=== PATIENT | female | born 1945 ===

== ENCOUNTER 2024-06-27 14:34 | Outpatient (AMB) | payer MEDICARE, SELFPAY ==
--- NOTE | 2024-06-27 14:49 | HO.NEPHOV ---
Vital Signs 06/27/24 14:52 Height 5 ft 2 in Weight 167 lb BMI 30.5 BP 132/66 Blood Pressure Location Lt brachial Position Sitting Pulse 54 Pulse Source Pulse Oximeter Pulse Oximetry (%) 97 Oxygen Delivery Method Room Air Intake Visit Reasons: ENP: Elevated BP-Conf Apple Checker Required: No Accompanied by: Spouse Allergies dicyclomine Allergy (Verified 06/27/24 14:54) Unknown Penicillins Allergy (Verified 06/27/24 14:54) Unknown Bentyl Allergy (Severe, Uncoded 06/27/24 14:54) Anaphylaxis Do you need a note to return to daycare/school/sports/work: No HPI Comments Details: I had the pleasure of seeing Deborah, accompanied by her , in consultation for labile blood pressure. She has H/O atrial arrhythmia and had undergone ablation. She has been having labile blood pressure more so at night. She takes sotalol for her arrhythmias which is also helping with her blood pressure. She has hypothyroidism and is on levothyroxine. She is not known to have renal dysfunction. She denies hypokalemia or vascular symptoms. She does not have any chest pain, shortness of breath, edema, hematuria or dizziness. She has a normal sodium diet [facility] Medical History Tinnitus of both ears Sensorineural hearing loss (SNHL) of both ears Lower leg edema Palpitations Chest pain PAF (paroxysmal atrial fibrillation) Elevated blood pressure reading Atrial tachycardia Family History Mother Hypertension Mitral valve prolapse Lung cancer Review of Systems Const All systems reviewed & are unremarkable except as noted in HPI and below Physical Exam Vital Signs: Last Vital Signs Pulse 54 06/27/24 14:52 BP 132/66 06/27/24 14:52 Pulse Ox 97 06/27/24 14:52 Oxygen Delivery Method Room Air 06/27/24 14:52 BMI result Body Mass Index 30.5 Const General: comfortable and no acute distress Orientation/consciousness: patient oriented x3 HEENT Head: Yes normocephalic Mouth: Normal oral and palatal mucosa present Eyes EOM: EOMs intact bilaterally Neck Neck: Yes supple Resp Auscultation: clear to auscultation bilaterally Cardio Jugular venous distension: no JVD Rate: regular rate GI Palpation (GI): Soft to palpation Auscultation: normal bowel sounds General: Yes no CVA tenderness Back/Spine/Pelvis Back: no CVA tenderness Skin General skin exam: no rashes or lesions noted Neuro General: patient oriented x3 and moves all extremities Extrem General: Yes no pedal edema Results Reviewed Nephrology Results: No Data to Display Assessment & Plan Assessment & Plan (1) Labile blood pressure: Code(s): R09.89 - Other specified symptoms and signs involving the circulatory and respiratory systems Category: Medical Plan Low sodium diet and continued life style modifications 24 hour Ambulatory blood pressure monitor ordered C/W current dose of sotalolol for now May need renin/aldosterone & doppler of renal arteries Further management is pending evolving data Answered all questions; F/U given in a few weeks Orders: Orders AMB 24 HR B/P Monitor PLACEMENT Today R09.89 - Other specified symptoms and signs involving the circulatory and respiratory systems Coding Level of Care Code New Pt Level 4 (04096) Diagnoses Labile blood pressure R09.89
[2024-06-27 14:52] VITALS: BP 132/66; PULSE 54; O2SAT 97; BMI 30.5
--- OUTSIDE RECORDS SUMMARY | 2024-06-27 17:20 | XMS_ITS | Clinical Summary ---
Author Organization [facility] Address [address] [place] [address] Care Team Providers Care Field Care Advocate Name Role Phone Rufino Monroe MD Primary Care Provider [phone] Allergies Active Allergy Reactions Criticality Noted Date Comments Dicyclomine Anaphylaxis High 11/06/2020 Penicillins Vomiting 11/06/2020 Sulfa (Sulfonamide Antibiotics) Vomiting 10/11 Medications No known medications Active Problems No known active problems Social History Tobacco Use Types Packs/Day Years Used Date Smoking Tobacco: Never Assessed Comments Unknown Sex and Gender Information Value Date Recorded Sex Assigned at Not on file Legal Sex Female 10:11 AM EDT Gender Identity Not on file Sexual Orientation Not on file Last Filed Vital Signs Vital Sign Reading Time Taken Comments Blood Pressure 121/57 11/06/2020 2:00 PM EDT Pulse 70 11/06/2020 2:00 PM EDT Temperature 36.3 ??C (97.4 ??F) 11/06/2020 2:00 PM ED T Respiratory Rate 18 11/06/2020 2:00 PM EDT Oxygen Saturation 100% 11/06/2020 2:00 PM EDT Inhaled Oxygen Concentration - - Weight 75.3 kg (166 lb 0.1 oz) 11/06/2020 10:28 AM EDT Height 157.5 cm (5' 2 ) 11/06/2020 10:28 AM EDT Body Mass Index 30.36 11/06/2020 10:28 AM EDT Plan of Treatment Health Maintenance Due Date Last Done Comments Mammogram 1945 Medicare Annual Wellness Visit 08/08/1963 Tdap and Td Vaccines Adult 1964 Pneumococcal Vaccine: 50+ Ye ars (1 of 1 - PCV) 08/08/1995 Zoster Vaccines (1 of 2) 08/08/1995 Fall Risk Screening 2010 RSV 60+ (1 - 1-dose 75+ series) 2020 COVID-19 Vaccine ( - 2023-2 5 season) 2023 Influenza Vaccine (#1) 2023 HIB Vaccines Aged Out No longer eligi ble based on patient's age to complete this topic HPV Vaccines Aged Out No longer eligi ble based on patient's age to complete this topic Hepatitis A Vaccines Aged Out No long er eligible based on patient's age to complete this topic IPV Vaccines Aged Out No longer eligi ble based on patient's age to complete this topic Meningococcal Vaccine Aged Out No taran eden eligible based on patient's age to complete this topic RSV <20 Months Aged Out No longer suzie gible based on patient's age to complete this topic Insurance [facility] Care Teams Field Care Advocate Relationship Specialty Start Date End Date Rufino Monroe MD [address] [facility] [address] [address] PCP - General Internal Medicine 11/06/20
--- OUTSIDE RECORDS SUMMARY | 2024-06-27 17:20 | XMS_ITS | Clinical Summary ---
Author Organization [facility] Address [address] [place] [address] Care Team Providers Care Commercial Property Administrator Name Role Phone Rufino Monroe MD Primary Care Provider [phone] Allergies Active Allergy Reactions Criticality Noted Date Comments Dicyclomine Anaphylaxis High 11/06/2020 Other reaction(s): Other (See Comments) Stop breathing Menthol Anaphylaxis High 07/15/2022 Penicillins Nausea And Vomiting Low 11/06/2020 Other reaction(s): Vomiting Sulfa Antibiotics Nausea And Vomiting Medications Medication Sig Dispensed Refills Start Date End Date Status levothyroxine (SYNTHROID, LEVOXYL) tablet 50 mcg Take 1 tablet (50 mcg total) by mouth daily. 3 01/08/2018 Active conjugated estrogens (PREMARIN) vaginal cream Premarin 0.625 mg/gram vaginal cream 0 Active sotalol (BETAPACE) 80 MG tablet Take 1 tablet (80 mg total) by mouth 2 (two) times a day. 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 Tinnitus of both ears 03/17/2018 Sensorineural hearing loss (SNHL) of both ears 1 05/18/2017 Family History Medical History Relation Name Comments Hypertension Mother Mitral valve prolapse Mother Relation Name Status Comments Mother Social History Tobacco Use Types Packs/Day Years Used Date Smoking Tobacco: Never Passive Smoke Exposure: Never Smokeless Tobacco: Never Alcohol Use Standard Drinks/Week Comments No 0 (1 standard drink = 0.6 oz pur e alcohol) Sex and Gender Information Value Date Recorded Sex Assigned at Female 10/23/2019 11:20 PM EDT Gender Identity Female 04/04/2022 9:42 PM EST Sexual Orientation Not on file Job Start Date Occupation Industry Not on file Not on file Not on file Last Filed Vital Signs Vital Sign Reading Time Taken Comments Blood Pressure 116/66 08/27/2022 2:25 PM EDT Pulse 65 08/27/2022 2:25 PM EDT Temperature 36.2 ??C (97.1 ??F) 06/29/2022 2:09 PM ED T Respiratory Rate 18 04/04/2022 9:39 PM EST Oxygen Saturation 96% 08/27/2022 2:25 PM EDT Inhaled Oxygen Concentration - - Weight 76.2 kg (168 lb) 08/27/2022 2:25 PM EDT Height 158.8 cm (5' 2.5 ) 08/27/2022 2:25 PM EDT Body Mass Index 30.24 08/27/2022 2:25 PM EDT Plan of Treatment Health Maintenance Due Date Last Done Comments Hepatitis C Screening 1945 Depression Screening 1957 BMI Counseling 08/08/1963 Preventative Health Evaluation 08/08/1963 DTap / Tdap / Td (1 - Tdap) 1964 Shingrix-Zoster Vaccine (1 of 2) 08/08/1995 Fall Risk Assessment 2010 Osteoporosis Screening (DEXA Scan) 2010 Pneumococcal Vaccine (1 of 1 - PCV) 2010 RSV Adult > 60+ Yrs or (1 - 1-dose 75+ series) 2020 COVID-19 Vaccine (3 - season) 2023 06/01/2020, 05/11/2020 Influenza Vaccine (#1) 2023 , 12/20/2019, 03/11/2019, Additional history exists Hepatitis B Vaccines Aged Out No long er eligible based on patient's age to complete this topic RSV Ped < 20 months Aged Out No longe r eligible based on patient's age to complete this topic Care Teams Commercial Property Administrator Relationship Specialty Start Date End Date Rufino Monroe MD [facility] [address] [address] PCP - General Oxyhydrogen Welder 03/17/18
--- OUTSIDE RECORDS SUMMARY | 2024-06-27 17:20 | XMS_ITS | Encounter Summary ---
Author Organization [facility] Address [address] [place] [address] Care Team Providers Care Cancer Program Director Name Role Phone Rufino Monroe MD Primary Care Provider [phone] Reason for Visit * Reason Comments Follow-up Encounter Details Date Type Department Care Team (Late st Contact Info) Description 06/14/2024 1:10 PM EST Office Visit [facility] [address] [place] [address] Carine Farmer PA [address] [place] [address] PAF (paroxysmal atrial fibrillation) (CMS/HCC) (Primary Dx); Palpitations; Atrial tachycardia (CMS/HCC); Elevated blood pressure reading Social History Tobacco Use Types Packs/Day Years Used Date Smoking Tobacco: Never Passive Smoke Exposure: Past Smokeless Tobacco: Never Alcohol Use Standard Drinks/Week Comments Not Currently 0 (1 standard drink = 0.6 oz pur e alcohol) No alcohol use Comments Unknown Sex and Gender Information Value Date Recorded Sex Assigned at Female 04/13/2024 7:29 PM EST Legal Sex Female 12:43 PM EST Gender Identity Female 04/13/2024 7:29 PM EST Sexual Orientation Straight 04/13/2024 7: 29 PM EST documented as of this encounter Last Filed Vital Signs Vital Sign Reading Time Taken Comments Blood Pressure 154/84 06/14/2024 1:09 PM EST Pulse 59 06/14/2024 1:09 PM EST Temperature - - Respiratory Rate - - Oxygen Saturation 96% 06/14/2024 1:09 PM EST Inhaled Oxygen Concentration - - Weight 75.8 kg (167 lb) 06/14/2024 1:09 PM EST Height 160 cm (5' 3 ) 06/14/2024 1:09 PM EST Body Mass Index 29.58 06/14/2024 1:09 PM EST documented in this encounter Progress Notes * ENDER Estevez - 06/14/2024 1:10 PM EST Please call with any questions or concerns Carine HANDLEY-C [phone] [facility] [address] [place] [address] Dr Zelaya wants to review and will call you and your son Stay on same medication Sent msg regarding bp monitor documented in this encounter Plan of Treatment Upcoming Encounters Date Type Department Care Team (Late st Contact Info) Description 10/04/2024 1:45 PM EDT Office Visit [facility] - [address] [place] [address] Nani Zelaya MD [address] [place] [address] documented as of this encounter Procedures Procedure Name Priority Date/Time Associated Diagnosis Comments ECG 12-LEAD Routine 06/14/2024 1:52 PM EST PAF (paroxysmal atrial fibrillation) (CMS/[facility]) documented in this encounter Results * ECG 12 lead (06/14/2024 1:52 PM EST) Ventricular Rate ECG 59 BPM GEMUSE Atrial Rate 59 BPM GEMUSE P-R Interval 194 ms GEMUSE QRS Duration 84 ms GEMUSE Q-T Interval 448 ms GEMUSE QTc 443 ms GEMUSE P Wave Alder 80 degrees GEMUSE R Alder 52 degrees GEMUSE T Alder 28 degrees GEMUSE ECG Interpretation Sinus bradycardia When compared with ECG of 20-APR-2024 11:21, No significant change was found Confirmed by JADEN ZELAYA ([id number]) on 06/19/2024 4:26:59 AM GEMUSE 06/14/2024 1:15 PM EST 06/19/2024 4:26 AM EDT us Carine HANDLEY ECG ORDERABLES Edited Result - Final GEMUSE documented in this encounter Visit Diagnoses Diagnosis PAF (paroxysmal atrial fibrillation) (CMS/HCC)- Primary Atrial fibrillation Palpitations Atrial tachycardia (CMS/HCC) Other specified cardiac dysrhythmias Elevated blood pressure reading Elevated blood pressure reading without diagnosis of hypertension documented in this encounter Care Teams Cancer Program Director Relationship Specialty Start Date End Date Rufino Monroe MD [address] PCP - General Field Service Poultry Technician 03/17/18 documented as of this encounter
--- OUTSIDE RECORDS SUMMARY | 2024-06-27 17:20 | XMS_ITS | Clinical Summary ---
Author Organization [address] [place] [address] [place] [phone] Phone Care Team Providers Care Automobile Body Repair Supervisor Name Role Phone Rufino Monroe MD Primary Care Provider [phone] Allergies Active Allergy Reactions Criticality Noted Date Comments Dicyclomine 05/05/2022 Penicillins 05/05/2022 Medications levothyroxine (SYNTHROID, LEVOTHROID) 50 mcg tablet Take 50 mcg by mouth daily. 8 Active ALPRAZolam (XANAX) 0.5 mg tablet Take 1 tablet (0.5 mg total) by mouth at bedtime as needed for anxiety. Active sotaloL (BETAPACE) 80 mg tabletIndications :prevention of recurrent atrial fibrillation Take 1 tablet (80 mg total) by mouth 1 (one) time each day in the morning AND 0.5 tablets (40 mg total) at bedtime. Take 80 mg in the morning and 40 mg in the evening. 180 tablet 2 4 03/16/20 25 Active estrogens, conjugated, (PREMARIN) 0.3 mg tablet Take 1 tablet (0.3 mg total) by mouth 1 (one) time each day. Active aspirin 81 mg EC tablet Take 1 tablet (81 mg total) by mouth 1 (one) time each day. 30 each 11 5 04/20/19 26 Active Active Problems Problem Noted Date Diagnosed Date Atrial tachycardia 06/14/2024 Elevated blood pressure reading 06/14/2024 PAF (paroxysmal atrial fibrillation) 03/16/2024 Chest pain 03/16/2024 Palpitations 03/16/2024 Lower leg edema 03/16/2024 Sensorineural hearing loss (SNHL) of both ears 1 05/18/2017 Tinnitus of both ears 03/17/2018 Encounters Date Type Department Care Team Description 06/21/2024 Telephone [facility] [address] [place] [address] Nani Zelaya MD 06/14/2024 1:10 PM EST Office Visit [facility] [address] [place] [address] Carine Farmer PA PAF (paroxysmal atrial fibrillation) (CMS/HCC) (Primary Dx); Palpitations; Atrial tachycardia (CMS/HCC); Elevated blood pressure reading 06/14/2024 Telephone [facility] [address] [place] [address] Carine Farmer PA 05/11/2024 Telephone [facility] [address] [place] [address] Carine Farmer PA 05/08/2024 Telephone [facility] [address] [place] [address] Nani Zelaya MD medication 04/28/2024 7:00 AM EST Ancillary Procedure [facility] [address] [place] [address] PAF (paroxysmal atrial fibrillation) (CMS/HCC); Palpitations 04/26/2024 Telephone [facility] [address] [place] [address] Nani Zelyaa MD ROCT - 52037 (Ok to Book); ROCT Enrollment (Enrolling patient for 14 day ROCT) 04/20/2024 11:10 AM EST Office Visit [facility] [address] [place] [address] Carine Farmer PA PAF (paroxysmal atrial fibrillation) (CMS/HCC) (Primary Dx); Palpitations 04/13/2024 6:50 PM EST - 04/13/2024 11:24 PM EST Emergency [facility] Emergency [address] [place] [address] Leonard Logan MD Gross hematuria (Primary Dx); Constipation, unspecified constipation type Discharge Disposition: Home or Self Care 04/13/2024 Telephone [facility] [address] [place] [address] Keara Lorenzana MA Blood in Urine (Taking Xarelto 15 mg, noticed blood in urine today); Chest Pain (Pain/ Spapsm, sometimes its a sharp stabbing pain. ) 04/04/2024 11:00 AM EST Ancillary Procedure [facility] [address] [place] [address] PAF (paroxysmal atrial fibrillation) (CMS/HCC); Palpitations 04/03/2024 Telephone [facility] [address] [place] [address] Nani Zelaya MD Atrial Fibrillation 03/30/2024 Telephone [facility] [address] [place] [address] Cierra Tellez MD from Last 3 Months Surgical History Surgery Date Site/Laterality Comments HYSTERECTOMY SECTION SECTION PROCEDURE: SECTION;COMMENT:cancerous tumor HYSTERECTOMY PROCEDURE:HYSTERECTOMY HYSTERECTOMY PROCEDURE: HISTORICAL HYSTERECTOMY Medical History Medical History Date Comments Arthritis Disease of thyroid gland Disease of thyroid gland DX:Dise ase of thyroid gland PAF (paroxysmal atrial fibri llation) (CMS/HCC) 2018 DX:PAF (paroxysmal atrial fibrillation) (HCC);COMMENT:Code Blue at first episode for Afib at [facility] Hypercoagulability due to at rial fibrillation (CMS/HCC) DX:Hypercoagulability due to atrial fibrillation (HCC) Refusal of anticoagulant med ication by patient DX:Refusal of anticoagulant medication by patient Osteoarthritis DX:Osteoarthriti s Hypothyroidism DX:Hypothyroidis m Need for prophylactic hormon e replacement therapy (postmenopausal) DX:Need for prophylactic hor raghavendra replacement therapy (postmenopausal) Anxiety DX:Anxiety Hypothyroidism DX:Hypothyroidis m Anxiety DX:Anxiety Covid-19 DX:COVID-19 Class 1 obesity DX:Class 1 obesi ty Family History Medical History Relation Name Comments Hypertension Mother Lung cancer Mother Mitral valve prolapse Mother Other: Other Mother Thyroid Other: prolapsed mirtal valve Mother Relation Name Status Comments Mother Social [...] Orientation Straight 04/13/2024 7: 29 PM EST Obstetrics History Last Filed Vital Signs Vital Sign Reading Time Taken Comments Blood Pressure 154/84 06/14/2024 1:09 PM EST Pulse 59 06/14/2024 1:09 PM EST Temperature 36.5 ??C (97.7 ??F) 04/13/2024 6:49 PM ES T Respiratory Rate 18 04/13/2024 11:18 PM EST Oxygen Saturation 96% 06/14/2024 1:09 PM EST Inhaled Oxygen Concentration - - Weight 75.8 kg (167 lb) 06/14/2024 1:09 PM EST Height 160 cm (5' 3 ) 06/14/2024 1:09 PM EST Body Mass Index 29.58 06/14/2024 1:09 PM EST Plan of Treatment Upcoming Encounters Date Type Department Care Team (Late st Contact Info) Description 10/04/2024 1:45 PM EDT Office Visit [facility] - [address] [facility] [address] [place] [address] Nani Zelaya MD [address] [place] [address] Health Maintenance Due Date Last Done Comments DTaP,Tdap,and Td Vaccines (1 - Tdap) 1964 Pneumococcal Vaccine: 50+ Years (1 of 2 - PCV) 1964 Zoster Vaccines (1 of 2) 08/08/1995 RSV Immunization Patients 60+ Years Old (1 - 1-dose 75+ series) 2020 Depression Screening 03/10/2022 Falls Risk Assessment 03/10/2022 Hepatitis C Screening 03/10/2022 Medicare Annual Wellness Visit 03/10/2022 Osteoporosis Screening (Bone Density Screening) 03/10/2022 Social Influencers of Health Screening 03/10/2022 COVID-19 Vaccine ( season) 2023 06/01/2020, 05/11/2020 Influenza Vaccine (#1) 2023 , 12/20/2019, 03/11/2019, Additional history exists Hypertension/CHF/CAD Annual BMP Blood Test 04/13/2025 04/13/2024, 07/03/2022, 11/06/2020, Additional history exists Cholesterol Screening (Lipid Panel) 07/04/2027 07/03/2022 HIB Vaccines Aged Out No longer eligi ble based on patient's age to complete this topic HPV Vaccines Aged Out No longer eligi ble based on patient's age to complete this topic Hepatitis A Vaccines Aged Out No long er eligible based on patient's age to complete this topic Hepatitis B Vaccines Aged Out No long er eligible based on patient's age to complete this topic IPV Vaccines Aged Out No longer eligi ble based on patient's age to complete this topic MMR Vaccines Aged Out No longer eligi ble based on patient's age to complete this topic Meningococcal ACWY Vaccine Aged Out N o longer eligible based on patient's age to complete this topic Meningococcal B Vacine Aged Out No lo nger eligible based on patient's age to complete this topic RSV Immunization Patients Under 20 months Aged Out No longer eligible based on patient's age to complete this topic Varicella Vaccines Aged Out No longer eligible based on patient's age to complete this topic Procedures Procedure Name Priority Date/Time Associated Diagnosis Comments ECG 12-LEAD Routine 06/14/2024 1:52 PM EST PAF (paroxysmal atrial fibrillation) (CMS/HCC) CARDIAC MACHINE TOOL REBUILDER W/ CONNECTION (MCOT) Routine 05/02/2024 8:15 AM EST PAF (paroxysmal atrial fibrillation) (CMS/HCC) Palpitations ECG 12-LEAD Routine 04/20/2024 12:10 PM EST PAF (paroxysmal atrial fibrillation) (CMS/HCC) CT ABDOMEN PELVIS W CONTRAST STAT 04/13/2024 9:24 PM EST ..URINALYSIS MICROSCOPIC REFLEX URINE CULTURE STAT 04/13/2024 7:37 PM EST URINALYSIS WITH REFLEX MICROSCOPIC AND CULTURE STAT 04/13/2024 7:37 PM EST URINALYSIS WITH REFLEX MICROSCOPIC AND CULTURE STAT 04/13/2024 7:37 PM EST CULTURE URINE STAT 04/13/2024 7:37 PM EST CBC WITH AUTO DIFFERENTIAL STAT 04/13/2024 7:33 PM EST ACTIVATED PARTIAL THROMBOPLASTIN TIME STAT 04/13/2024 7:33 PM EST PROTHROMBIN TIME WITH INR STAT 04/13/2024 7:33 PM EST CBC AND DIFFERENTIAL STAT 04/13/2024 7:33 PM EST COMPREHENSIVE METABOLIC PANEL STAT 04/13/2024 7:33 PM EST CARDIAC HOLTER MONITOR (REPORT GENERATED IN HOUSE) Routine 04/04/2024 10:57 AM EST PAF (paroxysmal atrial fibrillation) (CMS/HCC) Palpitations from Last 3 Months Results * ECG 12 lead (06/14/2024 1:52 PM EST) Only the most recent of2 resultswithin the time period is included. Ventricular Rate ECG 59 BPM GEMUSE Atrial Rate 59 BPM GEMUSE P-R Interval 194 ms GEMUSE QRS Duration 84 ms GEMUSE Q-T Interval 448 ms GEMUSE QTc 443 ms GEMUSE P Wave Burton 80 degrees GEMUSE R Burton 52 degrees GEMUSE T Burton 28 degrees GEMUSE ECG Interpretation Sinus bradycardia When compared with ECG of 20-APR-2024 11:21, No significant change was found Confirmed by JADEN ZELAYA ([id number]) on 06/19/2024 4:26:59 AM GEMUSE 06/14/2024 1:1 5 PM EST 06/19/2024 4:26 AM EDT us Carine HANDLEY ECG ORDERABLES Edited Result - Final GEMUSE * CARDIAC MACHINE TOOL REBUILDER W/ CONNECTION (MCOT) (05/02/2024 8:15 AM EST) Anatomical Region Laterality Modality Cardiac Diagnost ic Impressions 05/29/2024 10:11 PM EST Predominant normal sinus rhythm. Occasional premature ventricular contraction. Occasional premature atrial contractions with short runs of atrial tachycardia. No evidence of atrial fibrillation. Multiple patient triggered events correlating with normal sinus rhythm and occasionally with premature atrial or ventricular contractions. Narrative 05/29/2024 10:11 PM EST [facility] DIAGNOSTIC TESTING DEPARTMENT [address] [place] [address], [place] [address] TEL: FAX: TYPE OF TEST: 14 day ROCT monitor. DATES OF MONITORIN04/28/2024- 05/11/2024 REQUESTING PHYSICIAN: ENDRE Estevez PRIMARY CARE PROVIDER: Rufino Monroe MD INDICATION: PAF (paroxysmal atrial fibrillation), Palpitations FINDINGS 1. The predominant rhythm was sinus. 2. The average heart rate was 52 bpm, minimum heart rate was 42 bpm, maximum heart rate was 87 bpm. 3. Total VE burden: 0.3% consisting of singles, & VE Couplet. 4. Total SVE burden: 0.5% consisting of singles, couplets, triplets, with Atrial Run's present. ??Longest episode of atrial tachycardia was 7 beats. 5. There were 89 patient triggered symptomatic events. ??Majority of the events correlated with normal sinus rhythm. ??Some also correlated with premature ventricular contractions and premature atrial contractions. us Carine HANDLEY [facility] C[facility] SERVICES PROCEDURES F inal Result * CT Abdomen Pelvis w Contrast (04/13/2024 9:24 PM EST) Anatomical Region Laterality Modality Body Computed Tomogra phy 04/13/2024 10:1 2 PM EST Impressions 04/13/2024 10:16 PM EST Moderate stool in colon. The visualized portions of liver are fatty and heterogeneous, question hepatic disease. ??Possible hepatic hemangioma. ??Consider further evaluation of liver with MRI. Report reviewed and signed by : Dr. Luis Felipe Ji on 04/13/2024 10:16 PM. Workstation Name - [id number] -------- FINAL REPORT -------- Dictated By: Luis Felipe Ji Dictated Date: 04/13/2024 22:12 ET Assigned Physician: Luis Felipe Ji Reviewed and Electronically Signed By: Luis Felipe Ji Signed Date: 04/13/2024 22:16 ET Workstation ID: [id number] Transcribed By: Self Edit Transcribed Date: 04/13/2024 22:12 ET Narrative 04/13/2024 10:[address] ABDOMEN PELVIS W CONTRAST HISTORY: 78 years Female Hematuria, unknown cause left flank discomfort, hematuria COMPARISON: 10/24/2019 TECHNIQUE: CT abdomen, and pelvis was performed with intravenous contrast consisting of 100 ml of ISOVUE. Multiplanar reformats were reviewed. Dose reduction techniques were used including automated exposure control and adjustment of mA and/or KV according to patient size. FINDINGS: Streak artifact from overlying leads limits evaluation. Motion limits evaluation. No significant abnormality in the lungs. Visualized liver is fatty and heterogeneous with nonspecific subcentimeter hypodensity and possible hemangioma measuring 1.4 cm. No significant abnormality in the adrenals. No hydronephrosis. ??Right renal cyst. No significant abnormality in the spleen. No significant abnormality in the pancreas. No cholecystitis. No bowel obstruction. Moderate stool in colon. No appendicitis. No pneumoperitoneum. No significant lymphadenopathy. No abdominal aortic aneurysm. Unremarkable bladder. No aggressive osseous lesions. Procedure Note Luis Felipe Ji MD - 04/13/2024 CT ABDOMEN PELVIS W CONTRAST HISTORY: 78 years Female Hematuria, unknown cause left flank discomfort, hematuria COMPARISON: 10/24/2019 TECHNIQUE: CT abdomen, and pelvis was performed with intravenous contrastconsisting of 100 ml of ISOVUE. Multiplanar reformats were reviewed. Dosereduction techniques were used including automated exposure control andadjustment of mA and/or KV according to patient size. FINDINGS: Streak artifact from overlying leads limits evaluation. Motionlimits evaluation. No significant abnormality in the lungs. Visualized liver is fatty and heterogeneous with nonspecific subcentimeterhypodensity and possible hemangioma measuring 1.4 cm. No significant abnormality in the adrenals. No hydronephrosis. Right renal cyst. No significant abnormality in the spleen. No significant abnormality in the pancreas. No cholecystitis. No bowel obstruction. Moderate stool in colon. No appendicitis. No pneumoperitoneum. No significant lymphadenopathy. No abdominal aortic aneurysm. Unremarkable bladder. No aggressive osseous lesions. IMPRESSION: Moderate stool in colon. The visualized portions of liver are fatty and heterogeneous, questionhepatic disease. Possible hepatic hemangioma. Consider furtherevaluation of liver with MRI. Report reviewed and signed by : Dr. Luis Felipe Ji on 04/13/2024 10:16 PM.Workstation Name - [id number] -------- FINAL REPORT -------- Dictated By: Luis Felipe Ji Dictated Date: 04/13/2024 22:12 ET Assigned Physician: Luis Felipe Ji Reviewed and Electronically Signed By: Luis Felipe Ji Signed Date: 04/13/2024 22:16 ET Workstation ID: [id number] Transcribed By: Self Edit Transcribed Date: 04/13/2024 22:12 ET us Leonard Logan MD [facility] CT PROCEDURES Final Res ult * (ABNORMAL) Urinalysis with reflex microscopic and culture (04/13/2024 7:37 PM EST) Color, Urine Brown(A) Colorless, Yellow LAB URINALYSIS - AUTOMATED METHOD 04/13/2024 7:44 PM [facility] Clarity, Urine Cloudy(A) Clear LAB URINALYSIS - AUTOMATED METHOD 04/13/2024 7:44 PM [facility] Specific [place] Urine 1.025 1.005 - 1.030 LAB URINALYSIS - AUTOMATED METHOD 04/13/2024 7:44 PM [facility] pH, Urine 5.5 5.0 - 8.0 pH LAB URINALYSIS - AUTOMATED METHOD 04/13/2024 7:44 PM [facility] Leukocytes, Urine Negative Negative WBCs/mcL LAB URINALYSIS - AUTOMATED METHOD 04/13/2024 7:44 PM [facility] Nitrite, Urine Negative Negative LAB URINALYSIS - AUTOMATED METHOD 04/13/2024 7:44 PM [facility] Protein, Urine >=300(A) Negative mg/dL LAB URINALYSIS - AUTOMATED METHOD 04/13/2024 7:44 PM [facility] Glucose, Urine Negative Negative mg/dL LAB URINALYSIS - AUTOMATED METHOD 04/13/2024 7:44 PM [facility] Ketones, Urine Negative Negative mg/dL LAB URINALYSIS - AUTOMATED METHOD 04/13/2024 7:44 PM [facility] Blood, Urine Large(A) Negative mg/dL LAB URINALYSIS - AUTOMATED METHOD 04/13/2024 7:44 PM [facility] Urine Urine specimen obtained by clean catch procedure / Unknown Non-blood Collection / Unknown 04/13/2024 7:37 PM EST 04/13/2024 7:42 PM EST us Leonard Logan MD LAB URINE ORDERABLES Final Result [facility] [address] [place] [address], [place] [phone] * (ABNORMAL) Urinalysis microscopic reflex urine culture (04/13/2024 7:37 PM EST) RBC, Urine >20(H) 0 - 3 /HPF 04/13/2024 7:49 PM EST [facility] WBC, Urine 4 0 - 5 /HPF 04/13/2024 7:49 PM EST [facility] Bacteria, Urine 3+(A) None /HPF 04/13/2024 7:49 PM EST [facility] Squamous Epithelial, Urine 2 0 - 5 /HPF 04/13/2024 7:49 PM EST [facility] Mucus, UA 1+ None /LPF 04/13/2024 7:49 PM EST [facility] Urine Urine specimen obtained by clean catch procedure / Unknown Non-blood Collection / Unknown 04/13/2024 7:37 PM EST 04/13/2024 7:42 PM EST us Leonard Logan MD LAB URINE ORDERABLES Final Result [facility] [address] [place] [address], [place] [phone] * Culture urine (04/13/2024 7:37 PM EST) Culture, Urine Mixed urogenital emir, no uropathogens present. Suggest repeat specimen, if clinically indicated. 04/15/2024 7:44 AM EST [facility] Urine Urine specimen obtained by clean catch procedure / Unknown Non-blood Collection / Unknown 04/13/2024 7:37 PM EST 04/13/2024 7:44 PM EST us Leonard Logan MD LAB MICROBIOLOGY - GENERAL ORDERABLES Final Result [facility] [address] [place] [address], [place] [phone] * (ABNORMAL) CBC auto differential (04/13/2024 7:33 PM EST) WBC 6.0 4.0 - 10.5 K/mcL LAB HEMETOLOGY METHOD 04/13/2024 7:41 PM [facility] RBC 3.63(L) 4.20 - 5.40 M/mcL LAB HEMETOLOGY METHOD 04/13/2024 7:41 PM [facility] Hemoglobin 10.7(L) 12.5 - 16.0 g/dL LAB HEMETOLOGY METHOD 04/13/2024 7:41 PM [facility] Hematocrit 33.6(L) 37.0 - 47.0 % LAB HEMETOLOGY METHOD 04/13/2024 7:41 PM [facility] MCV 92.6 78.0 - 100.0 FL LAB HEMETOLOGY METHOD 04/13/2024 7:41 PM [facility] MCH 29.5 25.0 - 33.0 pcg LAB HEMETOLOGY METHOD 04/13/2024 7:41 PM [facility] MCHC 31.8(L) 32.0 - 36.0 g/dL LAB HEMETOLOGY METHOD 04/13/2024 7:41 PM [facility] RDW 13.7 12.1 - 16.2 % LAB HEMETOLOGY METHOD 04/13/2024 7:41 PM [facility] Platelets 262 150 - 450 K/mcL LAB HEMETOLOGY METHOD 04/13/2024 7:41 PM [facility] MPV 9.2 7.4 - 11.4 FL LAB HEMETOLOGY METHOD 04/13/2024 7:41 PM [facility] Neutrophils Relative 71.3 44.0 - 74.0 % LAB HEMETOLOGY METHOD 04/13/2024 7:41 PM [facility] Lymphocytes Relative 17.4(L) 20.0 - 48.0 % LAB HEMETOLOGY METHOD 04/13/2024 7:41 PM [facility] Monocytes Relative 7.7 2.0 - 12.0 % LAB HEMETOLOGY METHOD 04/13/2024 7:41 PM [facility] Eosinophils Relative 2.8 0.0 - 6.0 % LAB HEMETOLOGY METHOD 04/13/2024 7:41 PM [facility] Basophils Relative 0.5 0.0 - 2.0 % LAB HEMETOLOGY METHOD 04/13/2024 7:41 PM [facility] Neutrophils Absolute 4.25 1.80 - 7.80 K/mcL LAB HEMETOLOGY METHOD 04/13/2024 7:41 PM [facility] Lymphocytes Absolute 1.04 1.00 - 3.20 K/mcL LAB HEMETOLOGY METHOD 04/13/2024 7:41 PM [facility] Monocytes Absolute 0.46 0.00 - 0.80 K/mcL LAB HEMETOLOGY METHOD 04/13/2024 7:41 PM [facility] Eosinophils Absolute 0.17 0.00 - 0.50 K/mcL LAB HEMETOLOGY METHOD 04/13/2024 7:41 PM [facility] Basophils Absolute 0.03 0.00 - 0.20 K/mcL LAB HEMETOLOGY METHOD 04/13/2024 7:41 PM [facility] Blood Venous blood specimen / Unknown Venipuncture / Unknown 04/13/2024 7:33 PM EST 04/13/2024 7:38 PM EST Leonard Logan MD LAB BLOOD ORDERABLES Final Result Performing Organization Address [facility] Co de Phone Number [facility] [address] [place] [address], [place] [phone] * (ABNORMAL) APTT (04/13/2024 7:33 PM EST) aPTT 42.2(H) 25.0 - 37.0 sec LAB COAGULATION METHOD 04/13/2024 7:56 PM EST [facility] Blood Venous blood specimen / Unknown Venipuncture / Unknown 04/13/2024 7:33 PM EST 04/13/2024 7:38 PM EST Leonard Logan MD LAB BLOOD ORDERABLES Final Result Performing Organization Address [facility] Co de Phone Number [facility] [address] [place] [address], [place] [phone] * (ABNORMAL) Protime-INR (04/13/2024 7:33 PM EST) Protime 19.1(H) 10.5 - 13.3 sec LAB COAGULATION METHOD 04/13/2024 7:56 PM EST [facility] INR 1.6(H) 0.8 - 1.1 LAB COAGULATION METHOD 04/13/2024 7:56 PM EST [facility] Blood Venous blood specimen / Unknown Venipuncture / Unknown 04/13/2024 7:33 PM EST 04/13/2024 7:38 PM EST Narrative [facility] - 04/13/2024 7:56 PM EST Std. Therapy ?2.0-3.0 INR High Dose Therapy 2.5-3.5 INR Ranges may vary depending on clinical indications and protocol. us Leonard Logan MD LAB BLOOD ORDERABLES Final Result [facility] [address] [place] [address], [place] [phone] * (ABNORMAL) Comprehensive Metabolic Panel (CMP) (04/13/2024 7:33 PM EST) Pathologist [facility] Sodium 139 135 - 145 mmol/L LAB CHEMISTRY METHOD 04/13/2024 8:16 PM EST [facility] Potassium 4.5 3.5 - 5.1 mmol/L LAB CHEMISTRY METHOD 04/13/2024 8:16 PM [facility] Chloride 105 98 - 107 mmol/L LAB CHEMISTRY METHOD 04/13/2024 8:16 PM [facility] CO2 27 24 - 32 mmol/L LAB CHEMISTRY METHOD 04/13/2024 8:16 PM [facility] Anion Gap 7 5 - 14 LAB CHEMISTRY METHOD 04/13/2024 8:16 PM [facility] Glucose 108 70 - 199 mg/dL LAB CHEMISTRY METHOD 04/13/2024 8:16 PM [facility] BUN 15 7 - 17 mg/dL LAB CHEMISTRY METHOD 04/13/2024 8:16 PM [facility] Creatinine 1.05(H) 0.50 - 1.00 mg/dL LAB CHEMISTRY METHOD 04/13/2024 8:16 PM [facility] eGFR 54(L) >=60 mL/min/1. 73m2 LAB CHEMISTRY METHOD 04/13/2024 8:16 PM [facility] Comment:Calculation based on the??Chronic Kidney Disease Epidemiology Collaboration (CKD-EPI) equation refit??without adjustment for race. BUN/Creatinine Ratio 14.3 12.0 - 20.0 LAB CHEMISTRY METHOD 04/13/2024 8:16 PM [facility] Calcium 9.2 8.4 - 10.2 mg/dL LAB CHEMISTRY METHOD 04/13/2024 8:16 PM [facility] AST (SGOT) 14 5 - 40 unit/L LAB CHEMISTRY METHOD 04/13/2024 8:16 PM [facility] ALT (SGPT) 12 7 - 52 unit/L LAB CHEMISTRY METHOD 04/13/2024 8:16 PM [facility] Alkaline Phosphatase 92 34 - 104 unit/L LAB CHEMISTRY METHOD 04/13/2024 8:16 PM [facility] Total Protein 6.7 6.4 - 8.5 g/dL LAB CHEMISTRY METHOD 04/13/2024 8:16 PM [facility] Albumin 3.8 3.5 - 5.0 g/dL LAB CHEMISTRY METHOD 04/13/2024 8:16 PM [facility] Total Bilirubin 0.4 0.3 - 1.0 mg/dL LAB CHEMISTRY METHOD 04/13/2024 8:16 PM EST [facility] Blood Venous blood specimen / Unknown Venipuncture / Unknown 04/13/2024 7:33 PM EST 04/13/2024 7:38 PM EST us Leonard Logan MD LAB BLOOD ORDERABLES Final Result [facility] [address] [place] [address], * CARDIAC HOLTER MONITOR (REPORT GENERATED IN HOUSE) (04/04/2024 10:57 AM EST) Anatomical Region Laterality Modality Cardiac Diagnost ic Narrative 04/11/2024 8:15 AM EST ?Benign Holter monitor with normal sinus rhythm. ??No atrial fibrillation. [facility] DIAG[facility]ING DEPARTMENT [id number], [place] [address] TEL: FAX: Type of test: ??48 hour Holter Monitor Date of test: 04/04/24 Ordering provider: ENDER Estevez Reason for Test: Palpitations, Paroxysmal AFib ??s/p AFib Ablation PVCA Ticket Machine Operator Findings: Leads disconnected 12:00 am-11:08 am Day 1, and 2:05 pm Day 2 until end of recording. (27 hrs 52 mins total data obtained.) 1: Normal Sinus Rhythm with Sinus Bradycardia. 2: Heart rate range was 48- 84 bpm with an average of 60 bpm. Total time in Sinus Bradycardia was 10 hrs 48 mins. 3: Rare PACs and atrial pairs with three atrial runs up to 7 beats. Two PVCs. 4: No pauses noted. Longest R-R 1.6 sec. 5: Diary returned with episodes of flutter noted. EKG during one episode showed Normal Sinus Rhythm. The other two episodes were during the time when EKG data was not available due to electrodes being disconnected. Impression: Normal sinus rhythm with no atrial fibrillation. ??Rare PACs or short atrial runs. ??Patient symptoms did not consistently correlate to abnormal heart rhythm. Carine HANDLEY [facility] PROCEDURES F inal Result from Last 3 Months Insurance [place] [employer] Care Teams Automobile Body Repair Supervisor Relationship Specialty Start Date End Date Rufino Monroe MD [address] PCP - General Client Associate 03/17/18
--- OUTSIDE RECORDS SUMMARY | 2024-06-27 17:20 | XMS_ITS ---
Author Name [facility] Organization Unknown Results Test Name/Text Value Interpretation Date Range Source Creat SerPl-mCnc 1.05mg/dL Above high normal [id number] 0. 5 - 1 [facility] ALT SerPl-cCnc 12unit/L Normal [id number] 7 - 52 [facility] eGFRcr SerPlBld CKD-EPI 2020 54mL/min/1.73m2 Below low normal [id number] - [facility] CO2 SerPl-sCnc 27mmol/L Normal [id number] 24 - 32 [facility] Anion Gap SerPl-sCnc 7 Normal [id number] 5 - 14 [facility] AST SerPl-cCnc 14unit/L Normal [id number] 5 - 40 [facility] Chloride SerPl-sCnc 105mmol/L Normal [id number] 98 - 107 [facility] Bilirub SerPl-mCnc 0.4mg/dL Normal [id number] 0.3 - 1 [facility] Sodium SerPl-sCnc 139mmol/L Normal [id number] 135 - 145 [facility] Potassium SerPl-sCnc 4.5mmol/L Normal [id number] 3.5 - 5.1 [facility] BUN SerPl-mCnc 15mg/dL Normal [id number] 7 - 17 [facility] ALP SerPl-cCnc 92unit/L Normal [id number] 34 - 104 [facility] Glucose SerPl-mCnc 108mg/dL Normal [id number] 70 - 199 [facility] BUN/Creat SerPl 14.3 Normal [id number] 12 - 20 [facility] Calcium SerPl-mCnc 9.2mg/dL Normal [id number] 8.4 - 10 .2 [facility] Albumin SerPl-mCnc 3.8g/dL Normal [id number] 3.5 - 5 [facility] Prot SerPl-mCnc 6.7g/dL Normal [id number] 6.4 - 8.5 [facility] aPTT PPP 42.2sec Above high normal 25 - 37 [facility] INR PPP 1.6 Above high normal [id number] 0.8 - 1.1 [facility] PT Bld 19.1sec Above high normal [id number] 10.5 - 13 .3 [facility] Mucous Threads UrnS Ql Micro 1+ Normal - [facility] Bacteria #/area UrnS HPF 3+ Abnormal - [facility] WBC #/area UrnS HPF 4/HPF Normal 0 - 5 [facility] RBC #/area UrnS HPF 20/HPF Above high normal 0 - 3 [facility] Squamous Epithelial, Urine 2/HPF Normal 0 - 5 [facility] Hgb Ur Ql Large Abnormal [id number] - [facility] Color Ur Brown Abnormal [id number] - [facility] Leukocyte esterase Ur Ql Strip Negative Normal [id number] - [facility] Glucose Ur Ql Negative Normal [id number] - [facility] pH Ur 5.5pH Normal [id number] 5 - 8 [facility] Clarity Ur Cloudy Abnormal [id number] - [facility] Nitrite Ur Ql Negative Normal [id number] - [facility] Ketones Ur-mCnc Negative Normal [id number] - [facility] Prot Ur Strip-mCnc >=300 Abnormal [id number] - [facility] Sp Gr Ur 1.025 Normal [id number] 1.005 - 1.03 [facility] Hgb Bld-mCnc 10.7g/dL Below low normal [id number] 12.5 - 16 [facility] Eosinophil # Bld Auto 0.17K/mcL Normal [id number] 0 - 0.5 [facility] MCHC RBC Auto-mCnc 31.8g/dL Below low normal [id number] 3 2 - 36 [facility] PMV Bld Auto 9.2FL Normal [id number] 7.4 - 11.4 [facility] Basophils/leuk NFr Bld Auto 0.5% Normal [id number] 0 - 2 [facility] Monocytes/leuk NFr Bld Auto 7.7% Normal [id number] 2 - 12 [facility] RDW RBC Auto-Rto 13.7% Normal [id number] 12.1 - 16. 2 [facility] Monocytes # Bld Auto 0.46K/mcL Normal [id number] 0 - 0.8 [facility] Basophils # Bld Auto 0.03K/mcL Normal [id number] 0 - 0.2 [facility] Neutrophils # Bld Auto 4.25K/mcL Normal [id number] 1.8 - 7.8 [facility] Hct VFr Bld Auto 33.6% Below low normal [id number] 37 - 47 [facility] Lymphocytes/leuk NFr Bld Auto 17.4% Below low normal [id number] 20 - 48 [facility] Lymphocytes # Bld Auto 1.04K/mcL Normal [id number] 1 - 3.2 [facility] RBC # Bld Auto 3.63M/mcL Below low normal [id number] 4.2 - 5.4 [facility] Neutrophils/leuk NFr Bld Auto 71.3% Normal [id number] 44 - 74 [facility] Eosinophil/leuk NFr Bld Auto 2.8% Normal [id number] 0 - 6 [facility] WBC # Bld Auto 6K/mcL Normal [id number] 4 - 10.5 [facility] MCV RBC Auto 92.6FL Normal [id number] 78 - 100 [facility] MCH RBC Qn Auto 29.5pcg Normal [id number] 25 - 33 [facility] Platelet # Bld Auto 262K/mcL Normal [id number] 150 - 450 [facility] History of Medication Use Medication Directions Dispensed Refills Start Date End Date Stat polyethylene glycol (PEG) 17 gram/dose oral powder Take 17 g by mouth 1 (one) time each day for 3 days. 04/13/2024 04/17/2024 active rivaroxaban (XARELTO) 15 mg tablet Take 1 tablet (15 mg total) by mouth 1 (one) time each day with dinner. Take with food. active levothyroxine (SYNTHROID, LEVOTHROID) 50 mcg tablet Take 50 mcg by mouth daily. 01/08/2018 active conjugated estrogens (PREMARIN) vaginal cream Premarin 0.625 mg/gram vaginal cream active sodium chloride 0.9 % intravenous solution 50 mL 50 mL, intravenous, Once in imaging, Starting on Karen 04/13/24 at 2106, For 1 dose 04/14/2024 04/14/2024 completed ALPRAZolam (XANAX) 0.5 mg tablet Take 1 tablet (0.5 mg total) by mouth at bedtime as needed for anxiety. Max Daily Amount: 0.5 mg active Problems Problem Status Onset Date Problem Type Date of Resolution Source Lower leg edema active 2024-03-[address] [facility] Tinnitus of both ears active 2018-03-[address] [facility] Sensorineural hearing loss (SNHL) of both ears active 2018-03-[address] [facility] Gross hematuria active EncounterDiagnosisAct [facility] PAF (paroxysmal atrial fibrillation) active 2024-03-[address] [facility] Chest pain active 2024-03-[address] [facility] Palpitations active 2024-03-[address] [facility] Constipation, unspecified constipation type active EncounterDiagnosisAct [facility] Encounters Encounter Type Encounter Reason Primary Diagnosis Location Date Emergency vaginal bleed Gross hematuria [facility] 04/13/2024 Ambulatory [facility] [place] 10/18/2023 Ambulatory [facility] [place] 10/18/2023 Ambulatory COVID-19 [place] [facility] 02/19/2022 Care Team Organization Name Specialty Phone Email Start Date End Da te [facility] Rufino Monroe Primary [facility] 04/16/2024 [facility] Rufino Monroe [facility] 04/14/2024 [place] [facility] 02/19/2022 02/19/2022 [place] [facility] 02/19/2022
--- OUTSIDE RECORDS SUMMARY | 2024-06-27 17:20 | XMS_ITS | Encounter Summary ---
Author Organization [facility] Address [address] [place] [address] Care Team Providers Care Matcher Offbearer Name Role Phone Rufino Monroe MD Primary Care Provider [phone] Encounter Details Date Type Department Care Team (Late st Contact Info) Description 06/21/2024 Telephone [facility] - [facility] [address] [facility] [address] [place] [id number] Nani Courtney MD 300 [facility] [address] [place] [address] Social History Tobacco Use Types Packs/Day Years [...] PM EST documented as of this encounter Progress Notes * Duyen Mascorro MA - 06/21/2024 10:57 AM EDT Patient did not go to the ER. This happens almost every night , so she waited episode out. During the day its not as bad but as soon as night time comes, she's at rest watching TV this happens, Hot flash, weakness , bella to urinate or have a Bowel movement, feels like a palpitation unlike what's she's had before extra beat , makes her weak and rushes to her head. At time of call feels fine, had her shower, breakfast , good during the day. * Duyen Mascorro MA - 06/21/2024 10:56 AM EDT ----- Message from ENDER Carlos sent at 06/21/2024 9:24 AM EDT ----- Please call patient and follow-up with her symptoms she called Dr. Fuchs last night did she go to the hospital if she feeling any better ----- Message ----- From: Florencia Fuchs MD Sent: 06/21/2024 9:20 AM EDT To: ENDER Estevez; Nani Courtney MD Patient called yesterday evening and reported more frequent palpitation, lasting for more than 1 minute, a few times a day, took breath away. Checked Bp once and systolic Bp was upto 180. documented in this encounter Plan of Treatment Upcoming Encounters Date Type Department Care Team (Late st Contact Info) Description 10/04/2024 1:45 PM EDT Office Visit [facility] - [facility] [address] [facility] [address] [place] [address] Nani Courtney MD 300 [facility] [address] [place] [address] documented as of this encounter Visit Diagnoses Not on filedocumented in this encounter Care Teams Matcher Offbearer Relationship Specialty Start Date End Date Rufino Monroe MD [address] [facility] [address] [place], [place] PCP - General Armature Winder Repairer 03/17/18 documented as of this encounter
--- OUTSIDE RECORDS SUMMARY | 2024-06-27 17:20 | XMS_ITS | Clinical Summary ---
Author Organization [facility] Address [address] [place] [address] Care Team Providers Care Tire Service Supervisor Name Role Phone Unavailable Primary Care Provider Unavailabl e Allergies Active Allergy Reactions Criticality Noted Date Comments Dicyclomine Other (See Comments) High 02/19/2022 Stop breathing Penicillins GI Intolerance/Nausea/Vomiting Low 02/10 Medications Medication Sig Dispensed Refills Start Date End Date Status ALPRAZolam (XANAX) 0.25 MG tablet TAKE 1 TABLET BY MOUTH EVERY 12 HOURS NEEDED FOR 15 DAYS 01/28/2022 Active diltiazem (CARDIZEM CD) 180 MG 24 hr capsule Take by mouth daily. 02/12/2022 Acti ve hydrochlorothiazide (HYDRODIURIL) 25 MG tablet PLEASE SEE ATTACHED FOR DETAILED DIRECTIONS 02/12/2022 Active levothyroxine (SYNTHROID, LEVOTHROID) 50 MCG tablet Take 50 mcg by mouth daily. 11/21/2021 Active Active Problems No known active problems Social History Tobacco Use Types Packs/Day Years Used Date Smoking Tobacco: Never Assessed Sex and Gender Information Value Date Recorded Sex Assigned at Not on file Gender Identity Not on file Sexual Orientation Not on file Last Filed Vital Signs Vital Sign Reading Time Taken Comments Blood Pressure 132/79 02/19/2022 5:49 PM EST Pulse 66 02/19/2022 5:49 PM EST Temperature 36.4 ??C (97.6 ??F) 02/19/2022 5:49 PM ES T Respiratory Rate - - Oxygen Saturation 99% 02/19/2022 5:49 PM EST Inhaled Oxygen Concentration - - Weight 74.8 kg (165 lb) 02/19/2022 5:49 PM EST Height 157.5 cm (5' 2 ) 02/19/2022 5:49 PM EST Body Mass Index 30.18 02/19/2022 5:49 PM EST Plan of Treatment Health Maintenance Due Date Last Done Comments Hepatitis C Virus Screening 1945 DTaP/Tdap/Td Vaccines (1 - Tdap) 1964 Pneumococcal Vaccines 50+ (1 of 1 - PCV) 08/08/1995 Zoster (Shingles) Vaccine (1 of 2) 08/08/1995 DXA Bone Density (Females,Ag es 65 and older) 2010 RSV Vaccine 60 years and old er and Patients (1 - 1-dose 75+ series) 2020 Influenza Vaccine 11/11/2023 COVID-19 Vaccine (2023-2 5 season) 2023 Hepatitis B Vaccines Aged Out No long er eligible based on patient's age to complete this topic DanielDeborah saravia Personal/Family Self 1945 [address] [place] [address]
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
--- OUTSIDE RECORDS SUMMARY | 2024-06-27 17:20 | XMS_ITS | Encounter Summary ---
Author Organization [facility] Address [address] [place] [address] Care Team Providers Care Protection Chief Industrial Plant Name Role Phone Rufino Monroe MD Primary Care Provider [phone] Encounter Details Date Type Department Care Team (Late st Contact Info) Description 06/14/2024 Telephone [facility] - [facility] [address] [facility] [address] [place] [id number] Carine Farmer PA [address] [place] [address] Social History Tobacco Use Types Packs/Day Years [...] as of this encounter Progress Notes * Karla Maki MA - 06/14/2024 1:51 PM EST Patient did not have an account with them. I faxed over demographics, office note and referral. They will be contacting the patient to schedule. * ENDER Estevez - 06/14/2024 1:29 PM EST I placed referral to nephrology 05/11 for ambulatory monitoring and BP evalaution pt has not heard from nephrology for appt- can we [place] [facility] [place] documented in this encounter Plan of Treatment Upcoming Encounters Date Type Department Care Team (Late st Contact Info) Description 10/04/2024 1:45 PM EDT Office Visit [facility] - [facility] [address] [facility] [address] [place] [address] Nani Courtney MD [address] [place] [address] documented as of this encounter Visit Diagnoses Not on filedocumented in this encounter Care Teams Protection Chief Industrial Plant Relationship Specialty Start Date End Date Rufino Monroe MD [address] [facility] [address] [place], [place] PCP - General Cylinder Sander Operator 03/17/18 documented as of this encounter
--- OUTSIDE RECORDS SUMMARY | 2024-06-27 17:20 | XMS_ITS | Encounter Summary ---
Author Organization [facility] Address [address] [place] [address] Care Team Providers Care Pickle Solution Maker Name Role Phone Rufino Monroe MD Primary Care Provider [phone] Encounter Details Date Type Department Care Team (Late st Contact Info) Description 11/06/2020 Procedure Pass [facility] Radiology, [facility] (CT Scan) [address] [place] [address] Social History Tobacco Use Types Packs/Day Years Used Date Smoking Tobacco: Never Assessed Comments Unknown Sex and Gender Information Value Date Recorded Sex Assigned at Not on file Legal Sex Female 10:11 AM EDT Gender Identity Not on file Sexual Orientation Not on file COVID-19 Exposure Response Date Recorded In the last month, have you been in contact with someone who was confirmed or suspected to have Coronavirus / COVID-19? No / Unsure 11/06/2020 10:11 AM EDT documented as of this encounter Plan of Treatment Not on file documented as of this encounter Visit Diagnoses Not on filedocumented in this encounter Care Teams Pickle Solution Maker Relationship Specialty Start Date End Date Ruifno Monroe MD [address] [place], [place] [address] [address] PCP - General Internal Medicine 11/06/20 documented as of this encounter
== END 2024-06-27 15:25 | disposition home or self-care (01) ==
PROVIDERS: PCP Physician Assistant; Visit Provider Internal Medicine Nephrology
DX: R09.89 Other specified symptoms and signs involving the circulatory and respiratory systems (principal)
CPT/HCPCS: 99204

== ENCOUNTER → 2024-06-27 14:34 | Outpatient (BNVA) | payer MEDICARE, SELFPAY | PROVIDERS: PCP Physician Assistant; Visit Provider Internal Medicine Nephrology | DX: R09.89 Other specified symptoms and signs involving the circulatory and respiratory systems (principal); E03.9 Hypothyroidism, unspecified; Z79.899 Other long term (current) drug therapy | CPT/HCPCS: 99202 ==

== ENCOUNTER → 2024-07-24 13:39 | Outpatient (BNVA) | payer MEDICARE, SELFPAY | PROVIDERS: PCP Physician Assistant; Visit Provider Internal Medicine Nephrology ==

== ENCOUNTER 2024-07-25 13:37 | Outpatient (AMB) | payer MEDICARE, SELFPAY ==
--- NOTE | 2024-07-25 13:53 | HO.NEPHOV ---
Vital Signs 07/25/24 13:54 Height 5 ft 2 in Weight 165 lb BMI 30.2 BP 120/50 L Blood Pressure Location Lt brachial Position Sitting Pulse 56 Pulse Source Pulse Oximeter Pulse Oximetry (%) 98 Oxygen Delivery Method Room Air Intake Visit Reasons: 1 [facility] Agricultural Pilot Required: No Accompanied by: Spouse Allergies dicyclomine Allergy (Verified 07/25/24 13:54) Unknown Penicillins Allergy (Verified 07/25/24 13:54) Unknown Bentyl Allergy (Severe, Uncoded 06/27/24 14:54) Anaphylaxis HPI Comments Details: I had the pleasure of seeing Deborah in follow up for labile blood pressure. She has H/O atrial arrhythmia and had undergone ablation. She has been having labile blood pressure more so at night. She takes sotalol for her arrhythmias which is also helping with her blood pressure. She has hypothyroidism and is on levothyroxine. She is not known to have renal dysfunction. She denies hypokalemia or vascular symptoms. She does not have any chest pain, shortness of breath, edema, hematuria or dizziness. She has a normal sodium diet. She had a BPM which came off around 1.47 AM. Her daytime BP average was 136/65 mm of Hg [facility] Medical History Tinnitus of both ears Sensorineural hearing loss (SNHL) of both ears Lower leg edema Palpitations Chest pain PAF (paroxysmal atrial fibrillation) Elevated blood pressure reading Atrial tachycardia Family History Mother Hypertension Mitral valve prolapse Lung cancer Review of Systems Const All systems reviewed & are unremarkable except as noted in HPI and below Physical Exam Vital Signs: Last Vital Signs Pulse 56 07/25/24 13:54 BP 120/50 L 07/25/24 13:54 Pulse Ox 98 07/25/24 13:54 Oxygen Delivery Method Room Air 07/25/24 13:54 BMI result Body Mass Index 30.2 Const General: comfortable and no acute distress Orientation/consciousness: patient oriented x3 HEENT Head: Yes normocephalic Mouth: Normal oral and palatal mucosa present Eyes EOM: EOMs intact bilaterally Neck Neck: Yes supple Resp Auscultation: clear to auscultation bilaterally Cardio Jugular venous distension: no JVD Rate: regular rate GI Palpation (GI): Soft to palpation Auscultation: normal bowel sounds General: Yes no CVA tenderness Back/Spine/Pelvis Back: no CVA tenderness Skin General skin exam: no rashes or lesions noted Neuro General: patient oriented x3 and moves all extremities Extrem General: Yes no pedal edema Results Reviewed Nephrology Results: No Data to Display Assessment & Plan Assessment & Plan (1) Labile blood pressure: Code(s): R09.89 - Other specified symptoms and signs involving the circulatory and respiratory systems Category: Medical Plan Low sodium diet and continued life style modifications 24 hour Ambulatory blood pressure monitor reviewed Daytime average 136/65. Added lisinopril 2.5mg daily ( common side effects explained ); Labs ordered C/W current dose of sotalolol for now May need renin/aldosterone & doppler of renal arteries Further management is pending evolving data Answered all questions; F/U given in a few weeks Orders: Orders Creatinine 4 Weeks R09.89 - Other specified symptoms and signs involving the circulatory and respiratory systems Electrolytes 4 Weeks R09.89 - Other specified symptoms and signs involving the circulatory and respiratory systems Blood Urea Nitrogen 4 Weeks R09.89 - Other specified symptoms and signs involving the circulatory and respiratory systems Medications: New lisinopril 2.5 mg PO DAILY 30 tabs 4RF Coding Level of Care Code Est Pt Level 4 (97768) Diagnoses Labile blood pressure R09.89
[2024-07-25 13:54] VITALS: BP 120/50; PULSE 56; O2SAT 98; BMI 30.2
--- OUTSIDE RECORDS SUMMARY | 2024-07-25 16:41 | XMS_ITS | Clinical Summary ---
Author Organization [employer] [facility] Address [address] [place] [address] Care Team Providers Care Special Delivery Messenger Name Role Phone Rufino Monroe MD Primary Care Provider [phone] Allergies Active Allergy Reactions Criticality Noted Date [...] - 2023-2 5 season) 2023 Influenza Vaccine (Season Ended) 2024 HIB Vaccines Aged Out No longer eligi [...] patient's age to complete this topic Insurance [facility] Care Teams Special Delivery Messenger Relationship Specialty Start Date End Date Rufino Monroe MD [address] [facility] Maryvalelucy Henson [address] [address] PCP - General Internal Medicine 11/06/20
--- OUTSIDE RECORDS SUMMARY | 2024-07-25 16:41 | XMS_ITS | Clinical Summary ---
Author Organization [facility] Address [address] [place] [address] Care Team Providers Care Tire Changer Name Role Phone Unavailable Primary Care Provider [...] Personal/Family Self 1945 [address] [place] [address]
--- OUTSIDE RECORDS SUMMARY | 2024-07-25 16:41 | XMS_ITS | Clinical Summary ---
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
--- OUTSIDE RECORDS SUMMARY | 2024-07-25 16:41 | XMS_ITS | Clinical Summary ---
Author Organization [address] [place] [address] [place] [address] Phone Care Team Providers Care Summer Analyst Name Role Phone Rufino Monroe MD Primary Care Provider [phone] Allergies Active Allergy Reactions Criticality Noted Date [...] Problem Noted Date Diagnosed Date Atrial tachycardia (CMS/HCC V24) 06/14/2024 Elevated blood pressure reading 06/14/2024 PAF (paroxysmal atrial fibri llation) (CMS/HCC V24, CMS/HCC V28) 03/16/2024 Chest pain 03/16/2024 Palpitations 03/16/2024 Lower leg edema 03/16/2024 Sensorineural hearing loss (SNHL) of both ears 1 05/18/2017 Tinnitus of both ears 03/17/2018 Encounters Date Type Department Care Team Description 06/28/2024 Telephone [facility] [address] [place] [address] Nani Zelaya MD 06/21/2024 Telephone [facility] - [address] [place] [address] Nani Zelaya MD 06/14/2024 1:10 PM EST Office Visit [facility] - [address] [place] [address] Carine Farmer PA PAF (paroxysmal atrial fibrillation) (CMS/HCC V24, CMS/HCC V28) (Primary Dx); Palpitations; Atrial tachycardia (CMS/HCC V24); Elevated blood pressure reading 06/14/2024 Telephone [facility] - [address] [place] [address] Carine Farmer PA 05/11/2024 Telephone [facility] - [address] [place] [address] Carine Farmer PA 05/08/2024 Telephone [facility] - [address] [place] [address] Nani Zelaya MD medication 04/28/2024 7:00 AM EST Ancillary Procedure [facility] - [address] [place] [address] PAF (paroxysmal atrial fibrillation) (CMS/HCC V24, CMS/HCC V28); Palpitations 04/26/2024 Telephone [facility] - [address] [place] [address] Nani Zelaya MD ROCT - [id number] (Ok to Book); ROCT Enrollment (Enrolling patient for 14 day ROCT) from Last 3 Months Surgical History Surgery Date Site/Laterality Comments HYSTERECTOMY SECTION SECTION PROCEDURE: SECTION;COMMENT:cancerous tumor HYSTERECTOMY PROCEDURE:HYSTERECTOMY HYSTERECTOMY PROCEDURE: HISTORICAL HYSTERECTOMY Medical History Medical History Date Comments Arthritis Disease of thyroid gland Disease of thyroid gland DX:Dise ase of thyroid gland PAF (paroxysmal atrial fibri llation) ([facility] V24, [facility] V28) 2018 DX:PAF (paroxysmal atrial fibrillation) ([facility]);COMMENT:Code Blue at first episode for Afib at [facility] Hypercoagulability due to at rial fibrillation (CMS/[facility] V24, CMS/[facility] V28) DX:Hypercoagul ability due to atrial fibrillation ([facility]) Refusal of anticoagulant med ication by patient [...] Care Team (Late st Contact Info) Description 10/03/2024 2:00 PM EDT Office Visit [facility] [address] [facility] [address] [place] [address] Nani Zelaya MD [address] [facility] [address] [place] [address] Health Maintenance Due Date Last Done Comments DTaP,Tdap,and Td Vaccines (1 - Tdap) 1964 Pneumococcal Vaccine: 50+ Years (1 of 2 - PCV) 1964 Zoster Vaccines (1 of 2) 08/08/1995 RSV Immunization Adult Patients (1 - 1-dose 75+ series) 2020 Depression Screening 03/10/2022 Falls Risk Assessment 03/10/2022 Hepatitis C Screening 03/10/2022 Medicare Annual Wellness Visit 03/10/2022 Osteoporosis Screening (Bone Density Screening) 03/10/2022 Social Influencers of Health Screening 03/10/2022 COVID-19 Vaccine ( season) 2023 06/01/2020, 05/11/2020 Influenza Vaccine (Season Ended) 2024 01/19/2021, 12/20/2019, 03/11/2019, Additional history exists Hypertension/CHF/CAD Annual [...] age to complete this topic Meningococcal B Vaccine Aged Out No l onger eligible based on patient's age to complete this topic RSV Immunization Patients Under 20 months Aged Out No longer eligible based on patient's age to complete this topic Varicella Vaccines Aged Out No longer eligible based on patient's age to complete this topic Procedures Procedure Name Priority Date/Time Associated Diagnosis Comments ECG 12-LEAD Routine 06/14/2024 1:52 PM EST PAF (paroxysmal atrial fibrillation) (CMS/HCC V24, CMS/HCC V28) CARDIAC INDEPENDENT BEAUTY CONSULTANT W/ CONNECTION (MCOT) Routine 05/02/2024 8:15 AM EST PAF (paroxysmal atrial fibrillation) (CMS/HCC V24, CMS/HCC V28) Palpitations COMPREHENSIVE METABOLIC PANEL STAT 04/13/2024 7:33 PM EST from Last 3 Months or Most Recently Relevant to Health Maintenance Results * ECG 12 lead (06/14/2024 1:52 PM EST) Ventricular Rate ECG 59 BPM GEMUSE Atrial Rate 59 BPM GEMUSE P-R Interval 194 ms GEMUSE QRS Duration 84 ms GEMUSE Q-T Interval 448 ms GEMUSE QTc 443 ms GEMUSE P Wave [place] 80 degrees GEMUSE R [place] 52 degrees GEMUSE T [place] 28 degrees GEMUSE ECG Interpretation Sinus bradycardia When compared with ECG of 20-APR-2024 11:21, No significant change was found Confirmed by JADEN ZELAYA ([id number]) on 06/19/2024 4:26:59 AM GEMUSE 06/14/2024 1:15 PM EST 06/19/2024 4:26 AM EDT us Carine HANDLEY ECG ORDERABLES Edited Result - Final GEMUSE * CARDIAC INDEPENDENT BEAUTY CONSULTANT W/ CONNECTION (MCOT) (05/02/2024 8:15 AM EST) [...] ventricular contractions. Narrative 05/29/2024 10:11 PM EST [facility] DI[facility]NOSTIC [facility]ING DEPARTMENT [address] [place] [address] TEL: FAX: TYPE OF TEST: 14 day ROCT monitor. DATES OF MONITORIN04/28/2024- 05/11/2024 REQUESTING PHYSICIAN: ENDER Estevez PRIMARY CARE PROVIDER: Rufino Monroe MD [...] premature ventricular contractions and premature atrial contractions. Carine HANDLEY CV CARDIAC SERVICES PROCEDURES F inal Result * (ABNORMAL) Comprehensive Metabolic Panel (CMP) (04/13/2024 7:33 PM EST) Sodium 139 135 - 145 mmol/L LAB CHEMISTRY METHOD 04/13/2024 8:16 PM [facility] Potassium 4.5 3.5 - 5.1 mmol/L LAB CHEMISTRY METHOD 04/13/2024 8:16 PM [facility] Chloride 105 98 - 107 mmol/L LAB CHEMISTRY METHOD 04/13/2024 8:16 PM [facility] CO2 27 24 - 32 mmol/L LAB CHEMISTRY METHOD 04/13/2024 8:16 PM [facility] Anion Gap 7 5 - 14 LAB CHEMISTRY METHOD 04/13/2024 8:16 PM [facility] Glucose 108 70 - 199 mg/dL LAB CHEMISTRY METHOD 04/13/2024 8:16 PM [facility] BUN 15 7 - 17 mg/dL LAB CHEMISTRY METHOD 04/13/2024 8:16 PM [facility] Creatinine 1.05(H) 0.50 - 1.00 mg/dL LAB CHEMISTRY METHOD 04/13/2024 8:16 PM [facility] eGFR 54(L) >=60 mL/min/1. 73m2 LAB CHEMISTRY METHOD 04/13/2024 8:16 PM [facility] Comment:Calculation based on the??Chronic Kidney Disease Epidemiology Collaboration (CKD-EPI) equation refit??without adjustment for race. BUN/Creatinine Ratio 14.3 12.0 - 20.0 LAB CHEMISTRY METHOD 04/13/2024 8:16 PM [facility] Calcium 9.2 8.4 - 10.2 mg/dL LAB CHEMISTRY METHOD 04/13/2024 8:16 PM [facility] AST (SGOT) 14 5 - 40 unit/L LAB CHEMISTRY METHOD 04/13/2024 8:16 PM [facility] ALT (SGPT) 12 7 - 52 unit/L LAB CHEMISTRY METHOD 04/13/2024 8:16 PM [facility] Alkaline Phosphatase 92 34 - 104 unit/L LAB CHEMISTRY METHOD 04/13/2024 8:16 PM EST [facility] Total Protein 6.7 6.4 - 8.5 g/dL LAB CHEMISTRY METHOD 04/13/2024 8:16 PM EST [facility] Albumin 3.8 3.5 - 5.0 g/dL LAB CHEMISTRY METHOD 04/13/2024 8:16 PM EST [facility] Total Bilirubin 0.4 0.3 - 1.0 mg/dL LAB CHEMISTRY METHOD 04/13/2024 8:16 PM EST [facility] Blood Venous blood specimen / Unknown Venipuncture / Unknown 04/13/2024 7:33 PM EST 04/13/2024 7:38 PM EST us Leonard Logan MD LAB BLOOD ORDERABLES Final Result Performing Organization Address City/State/[facility] Co de Phone Number [facility] [address] [place] [address], from Last 3 Months or Most Recently Relevant to Health Maintenance Insurance [employer] Care Teams Summer Analyst Relationship Specialty Start Date End Date Rufino Monroe MD [facility] Ariadna Henson [address] PCP - General Rehab Consultant 03/17/18
--- OUTSIDE RECORDS SUMMARY | 2024-07-25 16:41 | XMS_ITS | Encounter Summary ---
Author Organization [facility] Address [address] [place] [address] Care Team Providers Care Casting Technician Name Role Phone Rufino Monroe MD Primary Care Provider [phone] Encounter Details Date Type Department Care Team (Late st Contact Info) Description 11/06/2020 Procedure Pass [facility] Radiology, [facility] (CT Scan) [address] [place] [id number] Social History Tobacco Use Types Packs/Day Years [...] on filedocumented in this encounter Care Teams Casting Technician Relationship Specialty Start Date End Date Rufino Monroe MD [address] [place], [place] [address]camryn Tereso[address] [address] PCP - General Internal Medicine 11/06/20 documented as of this encounter
--- OUTSIDE RECORDS SUMMARY | 2024-07-25 16:41 | XMS_ITS | Data Portability ---
Author Organization [place] [facility], [facility] Address [id number] [place] [address] Care Team Providers Care Staff Services Manager Name Role Phone SHAEJORY ESQUIVEL Primary Care Provider [phone] Assessment Encounter Date Assessment Date Assessment LastModified by Organization Details LastModified Time 03/31/2017 03/31/2017 Normal pelvic exam S/P TAHBSO (age 29 for precancerous ovary) Except atrophy & possible LS Vaginal Premarin for dyspareunia Recheck of vulva in 3 month (t/c bx if appropriate) PAP of cuff ERT: On Premarin 0.3 mg q day Aware of risks & benefits, wishes to continue MGM 03/28 (with PCP) BSE reinforced BMD: with PCP Colonoscopy: declines [email or web address] Not available 03/31/2017 13:39:33 08/18/2017 08/18/2017 Vulvar atrophy & irritation Significant improvement with Premarin cream Will apply externally q week/prn No need for bx RTC annual/prn vferlan Not available 08/18/2017 10:54:23 Plan of Treatment Reminders Order Date Submit Date Provider Last Modified By Organization Details Last Modified Time Details Appointments None recorded. Lab bacterial vaginosis + vaginitis panel, vaginal 2016 017 [place] [facility], [address] [place], [address] 7 14:19:48 urinalysis , dipstick 2016 017 [email or web address] In-Office Order, Internal Use Only DO Not Attach Compendium DO Not Attach Compendium, Do Not Delete/merge, [id number] 7 13:39:44 pap, IG + reflex HPV 2016 017 [facility], [address] [facility], [place], [address] 7 13:11:04 fecal occult blood, stool 2016 017 [email or web address] In-Office Order, Internal Use Only DO Not Attach Compendium DO Not Attach Compendium, Do Not Delete/merge, [id number] 7 13:40:02 Referral None recorded. Procedures None recorded. Surgeries None recorded. Imaging MAMMO, screening, digital, bilateral, w/ CAD 2016 017 [email or web address] [facility], [address], [address], [place], [address], 7 10:24:45 DEXA, axial skeleton 2016 017 [facility], [address], [address], [place], [address], 8 13:18:08 Medication Orders None recorded. Patient TargetsNo targets recorded. Patient Instructions Encounter Date Encounter Id Patient Instructions Last Modified By Organization Details Last Modified Time 03/31/2017 [id number] mammogram: about this test [email or web address] Not available 03/31/2017 13:39:44 tips to help you stay healthy vferlan Not available 03/31/2017 13:39:44 Reason for Referral None Reported. Results Created Date Observation Date Name Description Value Unit Range Abnormal Flag Note LastModifiedBy Organization Detail LastModifiedTime 03/31/20 17 03/31/2017 fecal occul t blood , stool Occult Blood negati ve Not Available In-Office Order Internal Use Only DO Not Attach Compendium DO Not Attach Compendium, Do Not Delete/merge, [id number] 03/31/2017 13:39:43 03/31/20 17 03/31/2017 urina lysis , dipst ick Interpretati on negati ve Not Available In-Office Order Internal Use Only DO Not Attach Compendium DO Not Attach Compendium, Do Not Delete/merge, [id number] 03/31/2017 12:48:12 03/31/20 17 04/01/2017 bacte rial vagin osis + vagin itis panel , vagin al trichomonas vaginalis DNA Negati ve negati ve Not Available [facility] [address] [place], [id number] 04/01/2017 14:19:48 03/31/20 17 04/01/2017 bacte rial vagin osis + vagin itis panel , vagin al gardnerella vaginalis DNA Negati ve negati ve Not Available [facility] [address] [place], [address] 04/01/2017 14:19:48 03/31/20 17 04/01/2017 bacte rial vagin osis + vagin itis panel , vagin al damon species DNA Negati ve negati ve Not Available [facility] [address], [place], 04/01/2017 14:19:48 03/31/20 17 04/02/2017 pap, IG + refle x HPV report [facility] CYTOL OGY SHIRLENE T A. THINP REP PAP TEST WITH HPV REFLE X: SPECI MEN ADEQU ACY: SATIS FACTO RY FOR EVALU ATION . INTER PRETA TION: NEGAT YAS FOR INTRA EPITH ELIAL LESFOREIGN N OR DARI WITT . Elect elian pink Tanvi d Out By: EDUAR Carrillo CT( CP) CLINI [facility] INFOR MATIO N: LMP: hyst Z01.4 19 Numbe r of vials /slid es submi tted: 1 Speci men sourc e: VAGIN AL Hyste recto my: Total Abnor mal Pap Date: N Autom ated presc reeni ng of all liqui d based speci mens is perfo rmed by the ThinP rep Imagi ng Syste m, unles s other chand state d. The Pap test is a scree aiden test with an inher ent false negat yas rate. [facility] , [address] [place] [address] CLIA [id number] CL-PO [id number] 7. Not Available [facility] [address], [place], 04/02/2017 13:11:04 01/11/20 18 04/22/2017 DEXA, axial skele ton No observ ation record ed. [address] [facility] [address], [place], [address], 04/23/2017 09:45:26 Result Notes None recorded. Problems No Known Problems Procedures Surgical History Date Name Laterality Status Provider Name and Address Organization Details Recorded Time 03/31/20 17 [id number] completed Smiley Coleman [facility] 03/31/2017 13:03:51 03/26/20 17 Date of Last Mammogram completed Smiley Coleman [facility] 03/31/2017 13:00:14 04/12/19 14 Date of Last Pap Smear completed Smiley Coleman [facility] 03/31/2017 12:59:44 Hysterectomy with removal of the ovaries completed Smiley Coleman [facility] 03/31/2017 12:58:40 Caesarean Section completed Smiley Coleman [facility] 03/31/2017 12:58:53 Imaging Results Imaging Date Name Status LastModified by Organiz ation Details LastModified Time 04/22/2017 DEXA, axial skeleton completed [address] [facility] [address], [place], [address], 04/23/2017 09:45:26 Procedure Notes None recorded. Medical Equipment None Reported. Allergies Allergen ID Allergen Name Allergen Category Reaction Reaction Severity Criticality Documentation Date Start Date Code Code System Note Provider Name and Address Organization Details Recorded Time [id number] Product containin g penicilli n (product) medicatio n Not available Not available Not available 03/31/2017 98407 8001 SNOMED Smiley hinojosa, [facility] 7 12:54:49 [id number] Bentyl medicatio n Not available Not available Not available 03/31/2017 49331 8 RxNorm Smiley Coleman null, [facility] 7 12:55:04 Medications Name Sig Start Date Stop Date Status Note LastModified by Organization Details LastModified Time clindamycin HCl 300 mg capsule 08/18 completed Not Available Not Available Not Available azithromyci n 250 mg tablet 08/18 completed Not Available Not Available Not Available alprazolam 0.25 mg tablet active Not Available Not Available Not Available ciprofloxac in 0.3 % eye drops 08/18 completed Not Available Not Available Not Available levothyroxi ne 50 mcg tablet active Not Available Not Available Not Available ibuprofen 600 mg tablet 08/18 completed Not Available Not Available Not Available methylpredn isolone 4 mg tablets in a dose pack 08/18 completed Not Available Not Available Not Available Premarin 0.625 mg/gram vaginal cream Insert 0.5 applicato rsful every day by vaginal route. 2017 active Not Available Not Available Not Avai lable Premarin 0.3 mg tablet Take 1 tablet every day by oral route. 08/18 completed Not Available Not Available Not Available chlorhexidi ne gluconate 0.12 % mouthwash 08/18 completed Not Available Not Available Not Available levothyroxi ne active 50 mcg Not Available Not Available Not Available Vitals Date Recorded Body weight Body mass index (BMI) Body height Systolic blood pressure Diastolic blood pressure Provider Name and Address Organization Details Last Updated DateTime 03/31/2017 95893.15 g 29.5 kg/m2 158.75 cm 134 mm[Hg] 82 mm[Hg] Smiley Coleman [facility] 7 12:53:37 Date Recorded Body height Body mass index (BMI) Body weight Systolic blood pressure Diastolic blood pressure Provider Name and Address Organization Details Last Updated DateTime 08/18/2017 158.75 cm 29.5 kg/m2 39160.15 g 118 mm[Hg] 70 mm[Hg] Smiley Coleman [facility] 8 10:41:10 Social History Question Answer Notes LastModified by Organizat ion Details LastModified Time Tobacco Smoking Status Never Smoker Smiley Coleman [facility] 03/31/2017 12:56:59 What Is Your Level Of Alcohol Consumption? Occasional Information not available 03/31/2017 Does Your Partner Physically Hurt You Or Threaten To Hurt You? No Information not available 03/31/2017 Has Your Partner Forced You To Have Sex Or Perform Sex Acts When You Did Not Want To? No Information not available 03/31/2017 Does Your Partner Insult, Scream At Or Talk Down To You? No Information not available 03/31/2017 Does Your Partner Control You Or Any Part Of Your Life? No Information not available 03/31/2017 Are You Afraid Of Your Partner? No Information not available 03/31/2017 Drug Use? No Information no t available 03/31/2017 Do You Feel Safe At Home? Yes Information not available 03/31/2017 What Was The Date Of Your Most Recent Tobacco Screening? 08/18/2017 Information not available 11/02/2018 Sex: Unknown Functional Status Question Answer Note LastModified by Organizat ion Details LastModified Time What is your exercise level? Occasional No formal active Information not available 03/31/2017 Mental Status None recorded. Family History Relationship Description Onset Age of this Age Resolved Age Notes LastModified by Organization Details LastModified Time Mother Malignant tumor of lung 80 cbinette Not available 2016 12:56:34 Father Diabetes mellitus cbinette Not available 2016 12:56:55 Medical History Condition Response Other N *No Diseases or Conditions N Blood clots N Breast Cancer N Benign breast disease N Colon cancer N Lung Disease N Depression N Defects or Inherited Disease N Anesthesia Complications N Headaches/Migraines N Have you ever been on isolation N Anxiety Disorder N Arthritis Y HSV N Infertility N Interstitial Cystitis N Abnormal pap N Acid Reflux (GERD) N Cancer N Stroke N Endometriosis N Fibromyalgia N Spina Bifida N HIV N Heart Problems N Sexual Dysfunction N Autoimmune disorder N Thyroid Problems Y Kidney or Bladder Problems N GI Problems N Eating Disorder N Anemia N Multiple Sclerosis N Psychiatric Illness N Diabetes N Ovarian Cancer N Blood Transfusions N Bladder disease N History of MRSA N Abnormal Uterine Bleeding N Hyperlipidemia N BrCa positive N Abuse/Domestic Violence N Diverticulitis N Asthma N Hepatitis N Hypertension N Osteoporosis N Thrombophilias N Gynecological History Statement/Question Response Current Control Method Hysterectom y Date of Last Mammogram 03/26/2017 Date of Last Colonoscopy Date of last DEXA 04/12/2010 Breast Ultrasound N Sexually Active? Y Date of Last Pap Smear 04/12/2013 Obstetrics History GPAL:G 4 P 4 0 0 4 Type Value Full Term 4 Living 4 Total 4 Past Encounters Encounter ID Performer Location Encounter Start Date Encounter Closed Date Diagnosis/Indication Diagnosis SNOMED-CT Code Diagnosis ICD10 Code Diagnosis Note [id number] THOMAS ROJAS MD [facility] [place] [address] 03/31/2017 12:44:08 03/31/2017 20:04:27 Gynecologic examination 55047408 Z01.419 Screening mammography 24 500043 Z12.31 Screening for osteoporosis 938174140 Z13.820 Vaginitis 74550371 N76.0 [id number] THOMAS ROJAS MD [facility] [place] [address] 08/18/2017 10:32:27 08/18/2017 11:06:10 Health Concerns Section Related Observation LastModified by Organization Detai ls LastModified Time None Recorded Concern Status LastModified by Organization Details LastModified Time None Recorded Advance Directives Directive None Recorded Payers Encounter Date Sequence Insurance Name Policy Number Policy Soto Covered Member ID Soto Member ID Guarantor Name 03/31/[address] [facility] [id number] [facility] [id number] Deborah Calvanese 08/18/[address] 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 Menstrual cycle:TRINI/BSO for bree age 29, has been on ERT since surgery Urinary symptoms:No hematuria; No incontinence Vulva:No genital lesion Vagina:Normal vaginal discharge;Vaginal itching Breast:No breast pain; No breast lump; No nipple discharge Sexual activity:sexually active yes Menopausal symptoms:No menopausal symptoms Psychological symptoms:No depression; No anxiety; No PMDD Preventive measures:Encourage self breast examination; Encourage regular exercise; Followed with Q3 year pap smear and high risk HPV typing; Mammogram performed within the past year; Needs to schedule colonoscopy; DEXA needs to schedule THOMAS ROJAS MD [address] [place] [address], [phone], [facility] 03/31/2017 13:40:11 08/18/2017 text/html Vulva feels much better after using the Premarin cream. Using prn (about q 2 weeks) THOMAS ROJAS MD [address] [place] [address], [address] [facility], [place], [address], [facility] 08/18/2017 10:54:26 OBGyn Episode No OBEpisode recorded.
== END 2024-07-25 14:32 | disposition home or self-care (01) ==
LOC: HO.HKAS 13:37
PROVIDERS: PCP Physician Assistant; Visit Provider Internal Medicine Nephrology
DX: R09.89 Other specified symptoms and signs involving the circulatory and respiratory systems (principal)
CPT/HCPCS: 99214

== ENCOUNTER → 2024-07-25 13:37 | Outpatient (BNVA) | payer MEDICARE, SELFPAY | PROVIDERS: PCP Physician Assistant; Visit Provider Internal Medicine Nephrology | DX: R09.89 Other specified symptoms and signs involving the circulatory and respiratory systems (principal) | CPT/HCPCS: 99212 ==